=== PATIENT | male | born 1965 | race Caucasian/White ===

== ENCOUNTER 2018-08-12 20:15 | Observation (INO) | payer BC ==
[2018-08-12 20:33] LABS: Bilirubin Negative (Negative); Blood, Urine Large (Negative); Clarity Cloudy (Clear); Glucose, Urine (Dipstick) Negative (Negative); Leukocyte Negative (Negative); Nitrite Negative (Negative); Protein, Urine (Dipstick) Negative (Neg-Trace); Specific Gravity, Urine 1.015 (1.005-1.030); Urobilinogen 0.2 mg/dL (0.2-1.0); pH, Urine 7.5 (5.0-9.0)
[2018-08-12 20:34] LABS: RBC/HPF 21-50 HPF (0-3); Squamous Epithelial 0-3 HPF (0-3); WBC/HPF 0-3 HPF (0-3)
[2018-08-12 20:35] LABS: Crystals/HPF 2+ CA OXALATE HPF (Negative)
[2018-08-12] MEDS ORDERED: Ketorolac Tromethamine 30 MG/ML VIAL ONE (20:44)
[2018-08-12 20:49] LABS: #Basophils 0.1 thou/uL (0.0-0.2); #Eosinphils 0.1 thou/uL (0.0-0.7); #Lymphocytes 1.7 thou/uL (1.20-3.40); #Monocytes 0.9 thou/uL (0.11-0.59); #Neutrophils 7.9 thou/uL (1.40-6.50); %Eosinophils 0.9 % (0.0-10.0); %Lymphocytes 15.9 % (21.0-51.0); %Monocytes 8.2 % (0.0-10.0); %Neutrophils 74.1 % (42.0-75.0); Hemoglobin 15.6 g/dL (14.0-18.0); Mean Corpuscular HGB CONC 34.7 g/dL (32.0-36.0); Mean Corpuscular Hemoglobin 30.8 pg (27.0-31.0); Mean Corpuscular Volume 88.8 fL (78.0-98.0); Mean Platelet Volume 6.5 fL (7.4-10.4); Platelet Count 267 thou/uL (130-400); RBC Distribution Width 10.5 % (11.5-14.5); Red Blood Cell (RBC) Count 5.07 mill/uL (4.70-6.10); White Blood Cell (WBC) Count 10.6 thou/uL (4.8-10.8)
[2018-08-12] MEDS ORDERED: Ondansetron HCl/PF 4 MG/2 ML Vial ONE (21:04)
[2018-08-12 21:06] LABS: ALT (SGPT) 30 U/L (8-55); AST (SGOT) 21 U/L (5-34); Albumin 4.6 g/dL (3.5-5.0); Alkaline Phosphatase 55 U/L (40-150); Anion Gap 14 mmol/L (10-20); BUN (Urea Nitrogen) 16 mg/dL (8.4-25.7); Bilirubin, Total 0.7 mg/dL (0.2-1.2); Calc. Creatinine Clearance 0 mL/min (70-130); Calcium 9.6 mg/dL (7.8-10.44); Carbon Dioxide 26 mmol/L (22-29); Chloride 103 mmol/L (98-107); Estimated GFR-MDRD 64; Globulin 3.1 g/dL (2.4-3.5); Glucose 94 mg/dL (70-105); Potassium 3.5 mmol/L (3.5-5.1); Protein, Total 7.7 g/dL (6.0-8.3); Sodium 139 mmol/L (136-145)
[2018-08-12] MEDS ORDERED: Morphine 4 MG/ML VIAL ONE (21:07)
--- NOTE | 2018-08-12 21:23 | RAD ---
ABDOMINAL RADIOGRAPH 08/12/18 HISTORY: Right sided kidney stone. FINDINGS: Comparison is made with prior AP view of the abdomen on 07/23/18 obtained at [facility]. Bubba t examination demonstrated a calculus overlying the expected location of the right renal shadow. The calculus was just superior to the level of the transverse process of the L2 vertebral body. The calcu anthony now appears to overlie the expected course of the proximal right ureter just below the level of t he transverse process of the L3 vertebral body. No additional suspicious calcifications are seen. Tin y phlebolith overlies the right hemipelvis. The bowel gas pattern is nonspecific. No other interval c hange. IMPRESSION: Migration of previously noted right renal calculus with calculus overlying the expected course of the right ureter at the level of the right L3 transverse process. POS: MAGEN
[2018-08-13 00:03] VITALS: BMI 22.0
[2018-08-13] MEDS ORDERED: Ondansetron ODT 4 MG TAB SL PRN (00:43)
[2018-08-13] MEDS ORDERED: Sodium Chloride 0.9% 1,000 ML IV SCH (00:43)
[2018-08-13] MEDS ORDERED: Ondansetron HCl/PF 4 MG/2 ML Vial IVP PRN (00:43)
[2018-08-13] MEDS ORDERED: Morphine 4 MG/ML VIAL SLOW IVP PRN (00:44)
[2018-08-13] MEDS ORDERED: Ketorolac Tromethamine 30 MG/ML VIAL IVP PRN (00:45)
[2018-08-13 07:37] VITALS: BP 136/82; TEMP 98
[2018-08-13] MEDS ORDERED: Iothalamate Meglumine 60% 50 ML VIAL FS ONE (09:58)
[2018-08-13] MEDS ORDERED: Fentanyl 100 MCG/2 ML VIAL ONE (10:08)
[2018-08-13] MEDS ORDERED: Midazolam HCl 2 mg/2 ml Vial ONE (10:08)
--- NOTE | 2018-08-13 11:49 | RAD ---
RIGHT RETROGRADE PYELOGRAM 17 VIEWS: Date: 08/13/18 HISTORY: Renal calculi. FINDINGS: This is a series of images which show placement of a right ureteral stent, which on the final images appears to be in satisfactory position. There are filling defects seen in the proximal ureter, which are potentially stones or air bubbles. IMPRESSION: Placement of right ureteral stent which appears to be in satisfactory position. POS: MARA
[2018-08-13] MEDS ORDERED: ePHEDrine/0.9% NaCl/PF SYRINGE 50 mg/10 ml ONE (12:54)
[2018-08-13] MEDS ORDERED: Lidocaine 1% PF 5 ML VIAL ONE (12:54)
[2018-08-13] MEDS ORDERED: Dexamethasone 20 MG/5 ML VIAL ONE (12:54)
[2018-08-13] MEDS ORDERED: PROPOFOL 200 MG/20 ML VIAL ONE (12:54)
[2018-08-13] MEDS ORDERED: diphenhydrAMINE 50 MG/ML VIAL ONE (12:54)
--- NOTE | 2018-08-13 14:04 | OP ---
DATE OF PROCEDURE: 08/13/2018 PREOPERATIVE DIAGNOSIS: Right proximal ureteral stone. POSTOPERATIVE DIAGNOSIS: Right proximal ureteral stone. PROCEDURE PERFORMED: Cysto, right retrograde and right stent. SURGEON: Jose Raymond M.D. ANESTHESIA: TIVA. ESTIMATED BLOOD LOSS: Minimal. FINDINGS: There is no evidence of stricture disease. There is mildly enlarged lateral lobes of the prostate. The bladder had no tumor, foreign body or stone. Two ureteral orifices in normal position . Retrograde study showed a normal ureter up to the level of the proximal ureteral stone. ____ once we placed the open-ended catheter up near it revealing a dilated right collecting system. A guidewi re easily went by the stone. We did not do ureteroscopy. We attempted to gently go up with a dual-l umen catheter and this was tight at the ureteral meatus. It was felt that it would be best to not tr y to force this issue for proximal ureteral stone. OPERATIVE TECHNIQUE: Obtain written and verbal consent from the patient. He was taken to the operat ing suite. He was placed in supine position on treatment table. PlexiPulses were placed on his lowe r extremities and turned on. He was given a TIVA anesthetic, oral obturator airway and was placed in the dorsal lithotomy position, sterilely prepped and draped. Fluoroscopy unit was used for imaging. He was placed in good position under it. Cystoscopy was performed with a 22-Salvadorean sheath. This w as well lubricated, passed under direct vision through the male urethra into the urinary bladder with aid of a 30-degree lens, a video camera and monitor. The bladder was filled and emptied a number of times and examined with both a 30 and a 70-degree lens. A 5-Salvadorean Pollack catheter was intubated w ith a guidewire and the guidewire was advanced about 4 cm up the right ureteral orifice and the open- ended catheter advanced over this into the right ureteral orifice and contrast was injected slowly in a retrograde manner. The images were obtained. The open-ended catheter was then placed up to the l evel of the obstructing stone and injected more contrast ____. We then fed the guidewire through the open-ended catheter and went by the stone up in the renal pelvis. We passed the open-ended catheter up in the renal pelvis and injected enough contrast to fill it out and then replaced the guidewire, removing the open-ended catheter. At this point, we brought in a dual-lumen catheter and attempted t o pass this over the guidewire, it would not go up the ureteral orifice, so we did not push, but felt it was at this point inappropriate to try to do ureteroscopy. The guidewire was backloaded through the cystoscope and a 4.8 x 26 cm double-J stent was placed over the guidewire and pushed up in place with the aid of a pusher, so its proximal end coiled in the renal pelvis and its distal end coiled in the bladder when the wire was removed. It was effluxing clear urine at the end of the case. There was no pyuria noted proximal to the stone. At this point, the bladder was drained and the instrument s were removed. He was taken out of the dorsal lithotomy position, awakened, extubated and taken by stretcher to the recovery room.
== END 2018-08-13 13:47 | disposition home or self-care (01) ==
LOC: SCSER 20:15 → T4-A 23:12
PROVIDERS: ADMIT Urology; ATTEND Urology
PROC: 0T768DZ Dilation of Right Ureter with Intraluminal Device, Via Natural or Artificial Opening Endoscopic (ICD-10-PCS; principal; 2018-08-13)
DX: N20.1 Calculus of ureter (principal); Z79.899 Other long term (current) drug therapy
CPT/HCPCS: 74018; 74420; 80053; 81003; 81015; 85025; 96361; 96374; 96375; C1758; G0378; J0131; J1100; J1200; J1885; J2001; J2250; J2270; J2405; J2704; J3010; Q9961

== ENCOUNTER 2018-08-16 23:51 | Emergency (ER) | payer BC ==
[2018-08-17 00:41] LABS: #Basophils 0.1 thou/uL (0.0-0.2); #Eosinphils 0.1 thou/uL (0.0-0.7); #Lymphocytes 1.6 thou/uL (1.20-3.40); #Monocytes 0.9 thou/uL (0.11-0.59); #Neutrophils 7.2 thou/uL (1.40-6.50); %Basophils 1.2 % (0.0-1.0); %Eosinophils 1.2 % (0.0-10.0); %Lymphocytes 15.7 % (21.0-51.0); %Monocytes 8.8 % (0.0-10.0); Hemoglobin 15.4 g/dL (14.0-18.0); Mean Corpuscular Hemoglobin 31.5 pg (27.0-31.0); Mean Corpuscular Volume 87.5 fL (78.0-98.0); Mean Platelet Volume 6.1 fL (7.4-10.4); Platelet Count 282 thou/uL (130-400); RBC Distribution Width 10.1 % (11.5-14.5); White Blood Cell (WBC) Count 9.9 thou/uL (4.8-10.8)
[2018-08-17 00:43] LABS: Anion Gap 16 mmol/L (10-20); BUN (Urea Nitrogen) 16 mg/dL (8.4-25.7); Calc. Creatinine Clearance 0 mL/min (70-130); Calcium 9.4 mg/dL (7.8-10.44); Carbon Dioxide 23 mmol/L (22-29); Chloride 103 mmol/L (98-107); Estimated GFR-MDRD 74; Glucose 98 mg/dL (70-105); Potassium 3.8 mmol/L (3.5-5.1); Sodium 138 mmol/L (136-145)
[2018-08-17 00:46] LABS: Bilirubin Negative (Negative); Blood, Urine Large (Negative); Clarity Cloudy (Clear); Glucose, Urine (Dipstick) Negative (Negative); Leukocyte Small (Negative); Nitrite Negative (Negative); Protein, Urine (Dipstick) 30 mg/dL (Neg-Trace); Urobilinogen 0.2 mg/dL (0.2-1.0); pH, Urine 8.5 (5.0-9.0)
[2018-08-17 00:53] LABS: Bacteria/HPF None Seen HPF (None Seen); RBC/HPF GREATER THAN 50-TNTC HPF (0-3)
[2018-08-17 00:54] LABS: Hyaline Casts/LPF NONE SEEN LPF (0-3 Hyaline); Squamous Epithelial None Seen HPF (0-3)
== END 2018-08-17 01:50 | disposition home or self-care (01) ==
LOC: SCSER 23:51
DX: N20.1 Calculus of ureter (principal); Z79.899 Other long term (current) drug therapy
CPT/HCPCS: 80048; 81003; 81015; 85025; 96360; 96361

== ENCOUNTER 2018-08-19 07:03 | Day surgery (SDC) | payer BC ==
[2018-08-18 10:33] VITALS: BMI 21.8
[2018-08-19] MEDS ORDERED: CEFAZOLIN/Water 2 GM/20 ML SYRINGE ONE (07:40)
[2018-08-19] MEDS ORDERED: Fentanyl 100 MCG/2 ML VIAL ONE (09:31)
[2018-08-19] MEDS ORDERED: Iothalamate Meglumine 60% 50 ML VIAL FS ONE (10:48)
[2018-08-19] MEDS ORDERED: Ondansetron HCl/PF 4 MG/2 ML Vial ONE (11:07)
[2018-08-19] MEDS ORDERED: PROPOFOL 200 MG/20 ML VIAL ONE (11:07)
[2018-08-19] MEDS ORDERED: Lidocaine 1% PF 5 ML VIAL ONE (11:07)
[2018-08-19] MEDS ORDERED: Dexamethasone 20 MG/5 ML VIAL ONE (11:07)
[2018-08-19] MEDS ORDERED: Glycopyrrolate 0.2 MG/ML 5 ML SYRINGE ONE (11:07)
[2018-08-19] MEDS ORDERED: ePHEDrine/0.9% NaCl/PF SYRINGE 50 mg/10 ml ONE (11:07)
--- NOTE | 2018-08-19 11:44 | RAD ---
INTRAOPERATIVE FLUOROSCOPY: Comparison: 08-13-18 FINDINGS: Retrograde IVP demonstrates opacification of the right inferior and extrarenal collecting system. The re is persistent dilatation of the right renal pelvis and right calices. Double J right ureteral sten t is appropriately position. IMPRESSION: Fluoroscopy as above. POS: MARA
[2018-08-19] MEDS ORDERED: Promethazine HCl 25 MG/ML VIAL ONE (11:55)
--- NOTE | 2018-08-19 12:38 | OP ---
DATE OF PROCEDURE: 08/19/2018 PREOPERATIVE DIAGNOSIS: Right ureteral stone with stent. POSTOPERATIVE DIAGNOSIS: Right ureteral stone with stent. PROCEDURE PERFORMED: Right flexible ureteroscopy, laser lithotripsy, stone retrieval stent replaceme nt. SURGEON: Dr. Jose Raymond. ANESTHESIA: General. ESTIMATED BLOOD LOSS: Less than 50 mL. FINDINGS: There was a proximal right ureteral stone probably 6-8 mm in length. The ureter was very edematous around it, it was impacted into the lateral aspect of the ureter at this point. The stone was broken up with the laser and tiny fragments were not removed and about 3 fragments that were slig htly larger that were removed with a basket and sent off. We did flexible ureteroscopy all the way u p to the renal pelvis and the calyceal system, saw no other significant stone fragments and just tiny little stones and probably just related to breaking up the stones in the proximal ureter. Retrograd e study done at the end of the case showed just some narrowing of the ureter. At this point, there w as no extravasation along the course of the ureter. DRAINS PLACED: A 6 x 26 Polaris double-J stent with a string attached. OPERATIVE TECHNIQUE: After obtaining written and verbal consent from the patient, he was taken to [facility] operating suite. He was placed in the supine position on the treatment table. PlexiPulses were pl aced on his lower extremities and turned on. He was given a general anesthetic and oral obturator in tubation. He was placed in the dorsal lithotomy position and sterilely prepped and draped. Cystosco py was performed with a 22-Swiss sheath. This was well lubricated, passed in direct vision through the male urethra into the urinary bladder with aid of a 30 degree lens and a video camera and monitor . The bladder was filled and emptied a number of times and the distal end of the indwelling double-J stent was grasped and brought out through the urethral meatus and a guidewire was fed up across this . You could see the stone still in the same position in the proximal ureter. The wire went easily b y it. We then brought in a dual lumen ureteral catheter and passed up to just distal to the stone an d then passed a second guidewire by the stone removing the dual-lumen catheter. We then brought in a mid-sized ureteral sheath and obturator and used the obturator to go up to this point and then place d a sheath on the obturator and went up to this over a blue stiff wire, which was the second wire meliton t we had placed up to just the level just below the stone. We then went brought in a flexible ureter oscope and went in through the ureteral sheath up to the level of the stone, it was impacted into the lateral aspect of the right ureter and at this point, we were able to manipulate this off of the wal l of the ureter with the small caliber Holmium laser fiber and we used laser fiber to try to disinteg rate as much of the stone as we could, leaving some small pieces that we were able to basket remove. We then fed a guidewire proximal to this region as the flexible ureteroscope would not easily pass t hrough it and we followed over this guidewire up in the area of dilated renal pelvis. The stone was really kind just at the ureteropelvic junction or just distal to it. We looked in all the infundibul ar system. There was no sizable stones of any sort, just some tiny fragments that probably just wash ed back in from the ureteroscopy. There was one other stone fragments that was just a little bit pro ximal to where the stone had been and we were able to basket this and remove it. At this point, we f ollowed the ureteral sheath all the way out. There was no other abnormality noted in the ureter. Th rough our remaining guidewire we backloaded that through the cystoscope, passed a 5-Swiss Pollack ca theter up to the area of the renal pelvis, removed the guidewire and injected contrast filling out th e collecting system. There was no extravasation was some narrowing in the proximal ureter where the stone was, but no extravasation, no persistent filling defects. The guidewires were placed over and the catheter was removed and a 6 x 26 Polaris double-J stent was placed over the guidewire and pushed up into place with aid of a pusher so its proximal end coiled in the renal pelvis and its distal end coiled in the bladder when the wire was removed. At this point, the patient was awakened and extuba adenike and taken by stretcher to the recovery room.
[2018-08-19] MEDS ORDERED: Morphine 4 MG/ML VIAL ONE (12:55)
[2018-08-19] MEDS ORDERED: hydrALAZINE 20 MG/ML VIAL ONE (13:39)
== END 2018-08-19 14:18 | disposition home or self-care (01) ==
LOC: SDC 07:03
PROVIDERS: ATTEND Urology
PROC: 0TF68ZZ Fragmentation in Right Ureter, Via Natural or Artificial Opening Endoscopic (ICD-10-PCS; principal; 2018-08-19)
PROC: 0T768DZ Dilation of Right Ureter with Intraluminal Device, Via Natural or Artificial Opening Endoscopic (ICD-10-PCS; principal; 2018-08-19)
DX: N20.1 Calculus of ureter (principal)
CPT/HCPCS: 74420; 82365; 88300; 96374; 96375; C1758; J0360; J1100; J2001; J2270; J2405; J2550; J2704; J3010; Q9961

== ENCOUNTER 2019-10-22 09:11 | Outpatient (CLI) | payer OTHER ==
--- NOTE | 2019-10-22 09:31 | RAD ---
EXAM: Chest 2 views: HISTORY: Dyspnea COMPARISON: None. FINDINGS: There is a normal-sized cardiomediastinal silhouette. There is no evidence of consolidation, mass, or pleural effusion. The bones are unremarkable. IMPRESSION: No evidence of acute cardiopulmonary disease
== END 2019-10-22 09:12 | disposition home or self-care (01) ==
LOC: RAD 09:11
PROVIDERS: ATTEND Internal Medicine Critical Care Medicine
DX: R06.00 Dyspnea, unspecified (principal)
CPT/HCPCS: 71046